=== PATIENT | male | born 1985 | race African-American/Black ===

== ENCOUNTER 2024-06-07 18:12 | Emergency (ER) | payer OTHER ==
[~2024-06-07] VITALS: Ht 167.6 cm; Wt 75.0 kg
[2024-06-07 18:21] VITALS: BP 146/84; PULSE 122; RESP 22; TEMP 98.8; O2SAT 100
[2024-06-07 19:33] LABS: BASOPHILS % 0.9 % (0.0-2.0); EOSINOPHILS % 1.9 % (0.0-5.0); HEMATOCRIT. 37.9 % (42.0-52.0); HEMOGLOBIN. 12.8 g/dL (14.0-18.0); LYMPHOCYTES % 38.6 % (20.0-50.0); MEAN CORPUSCULAR HEMOGLOBIN 31.7 pg (28.0-32.0); MEAN CORPUSCULAR HGB CONC 33.8 g/dL (31.0-37.0); MEAN CORPUSCULAR VOLUME 93.6 fL (80.0-94.0); MEAN PLATELET VOLUME 7.6 fl (7.4-10.4); MONOCYTES % 9.9 % (2.0-8.0); NEUTROPHILS % 48.7 % (40.0-76.0); PLATELET 199 x1000/uL (130-400); RED BLOOD CELL COUNT 4.05 mill/uL (4.7-6.1); RED CELL DISTRIBUTION WIDTH 13.3 % (11.6-14.6); WHITE BLOOD COUNT 5.7 x1000/uL (4.5-11.0)
[2024-06-07 19:39] LABS: CHLORIDE 111 mEq/L (98-107); POTASSIUM 3.4 mEq/L (3.5-5.1); SODIUM 139 mEq/L (136-145)
[2024-06-07 19:40] LABS: CALCIUM 9.1 mg/dL (8.7-10.4); CARBON DIOXIDE 23 mEq/L (21-32)
[2024-06-07 19:45] LABS: CREATININE 0.9 mg/dL (0.6-1.3); GLUCOSE 108 mg/dL (70-105); UREA NITROGEN BLOOD 10 mg/dL (9-23)
[2024-06-07 19:56] LABS: TROPONIN I HIGH SENSITIVITY < 4 ng/L (3.0-53)
== END 2024-06-07 21:40 ==
LOC: ER 18:12
DX: R46.2 Strange and inexplicable behavior (principal); R07.89 Other chest pain; R41.82 Altered mental status, unspecified
CPT/HCPCS: 36415; 71045; 80048; 84484; 85025; 93005; 99285

== ENCOUNTER 2024-10-09 01:25 | Emergency (ER) | payer MEDICAID, OTHER ==
[~2024-10-09] VITALS: Ht 170.2 cm; Wt 64.0 kg
[2024-10-09 01:46] VITALS: BP 112/75; TEMP 98.4; O2SAT 99
[2024-10-09] MEDS ORDERED: PREDNISONE 20MG TABLET PO STA (01:53)
[2024-10-09 04:26] LABS: HEMATOCRIT. 36.1 % (42.0-52.0); HEMOGLOBIN. 12.6 g/dL (14.0-18.0); MEAN CORPUSCULAR HEMOGLOBIN 32.3 pg (28.0-32.0); MEAN CORPUSCULAR HGB CONC 34.8 g/dL (31.0-37.0); MEAN CORPUSCULAR VOLUME 92.8 fL (80.0-94.0); MEAN PLATELET VOLUME 7.3 fl (7.4-10.4); PLATELET 179 x1000/uL (130-400); RED BLOOD CELL COUNT 3.89 mill/uL (4.7-6.1); RED CELL DISTRIBUTION WIDTH 12.6 % (11.6-14.6); WHITE BLOOD COUNT 13.2 x1000/uL (4.5-11.0)
[2024-10-09 04:32] LABS: CHLORIDE 103 mEq/L (98-107); POTASSIUM 3.4 mEq/L (3.5-5.1); SODIUM 136 mEq/L (136-145)
[2024-10-09 04:33] LABS: CARBON DIOXIDE 23 mEq/L (21-32)
[2024-10-09 04:38] LABS: CREATININE 0.9 mg/dL (0.6-1.3); GLUCOSE 117 mg/dL (70-105); UREA NITROGEN BLOOD 12 mg/dL (9-23)
[2024-10-09] MEDS: IPRATROPIUM BROMIDE (0.02%) 0.5MG/2.5ML NEB HHN STA (04:39)
[2024-10-09] MEDS: ALBUTEROL (0.083%) 2.5MG/3ML NEB HHN STA (04:39)
[2024-10-09] MEDS: ALBUTEROL (0.083%) 2.5MG/3ML NEB HHN NR (04:40)
[2024-10-09 04:41] VITALS: PULSE 88; RESP 20
[2024-10-09 04:41] LABS: ETHANOL BLOOD < 10 mg/dL (<10); TROPONIN I HIGH SENSITIVITY < 4 ng/L (3.0-53)
[2024-10-09] MEDS: IPRATROPIUM BROMIDE (0.02%) 0.5MG/2.5ML NEB HHN NR (04:41)
[2024-10-09 05:11] LABS: DIFFERENTIAL COMMENT 1
[2024-10-09 05:18] LABS: INR 1.1; PROTHROMBIN TIME 11.8 sec (9.6-11.0)
[2024-10-09 06:54] LABS: PLATELET ESTIMATE NORMAL
[2024-10-09] MEDS ORDERED: IBUP-2029 MT (23:01)
== END 2024-10-09 06:44 | disposition home or self-care (01) ==
LOC: ER 01:25
DX: R07.89 Other chest pain (principal)
CPT/HCPCS: 80048; 80320; 83880; 85025; 85610; 84484; 36415; 71045; 94640; 99284; J7512; Z7610 ×3; G0480

== ENCOUNTER 2024-10-09 21:20 | Emergency (ER) | payer SELFPAY ==
[~2024-10-09] VITALS: Ht 170.2 cm; Wt 64.0 kg
[2024-10-09 21:29] VITALS: TEMP 97.9; O2SAT 100
[2024-10-09] MEDS: IBUPROFEN 600MG TABLET PO ONE (22:06)
[2024-10-09 22:13] LABS: BASOPHILS % 0.4 % (0.0-2.0); EOSINOPHILS % 0.1 % (0.0-5.0); HEMATOCRIT. 36.7 % (42.0-52.0); HEMOGLOBIN. 12.5 g/dL (14.0-18.0); MEAN CORPUSCULAR HEMOGLOBIN 31.6 pg (28.0-32.0); MEAN CORPUSCULAR VOLUME 93.1 fL (80.0-94.0); MEAN PLATELET VOLUME 7.8 fl (7.4-10.4); MONOCYTES % 9.3 % (2.0-8.0); NEUTROPHILS % 77.2 % (40.0-76.0); PLATELET 208 x1000/uL (130-400); RED BLOOD CELL COUNT 3.94 mill/uL (4.7-6.1); RED CELL DISTRIBUTION WIDTH 12.6 % (11.6-14.6); WHITE BLOOD COUNT 12.9 x1000/uL (4.5-11.0)
[2024-10-09 22:24] LABS: CHLORIDE 108 mEq/L (98-107); POTASSIUM 3.6 mEq/L (3.5-5.1); SODIUM 142 mEq/L (136-145)
[2024-10-09 22:25] LABS: CARBON DIOXIDE 27 mEq/L (21-32)
[2024-10-09 22:26] LABS: CALCIUM 9.1 mg/dL (8.7-10.4)
[2024-10-09 22:30] LABS: CREATININE 0.9 mg/dL (0.6-1.3)
[2024-10-09 22:31] LABS: GLUCOSE 115 mg/dL (70-105); UREA NITROGEN BLOOD 13 mg/dL (9-23)
[2024-10-09 22:40] LABS: ETHANOL BLOOD < 10 mg/dL (<10); TROPONIN I HIGH SENSITIVITY < 4 ng/L (3.0-53)
[2024-10-09] MEDS ORDERED: IBUP-2029 MT (23:01)
[2024-10-09 23:19] VITALS: BP 115/61; PULSE 100; RESP 17; O2SAT 99
== END 2024-10-09 23:23 | disposition home or self-care (01) ==
LOC: ER 21:20
DX: R07.89 Other chest pain (principal); F17.210 Nicotine dependence, cigarettes, uncomplicated; F14.10 Cocaine abuse, uncomplicated; F12.10 Cannabis abuse, uncomplicated; I49.9 Cardiac arrhythmia, unspecified
CPT/HCPCS: 36415; 71045; 80048; 80320; 84484; 85025; 93005; 99285; 99406; G0480